=== PATIENT | male | born 1965 | race Caucasian/White ===

== ENCOUNTER 2016-12-03 16:52 | Inpatient (IN) | payer OTHER ==
[~2016-12-03] VITALS: Ht 167.6 cm; Wt 67.0 kg
[~2016-12-03 16:52] MED LIST: PREDNISONE20 MG PO; VENTOLIN HFA18 GM IH
[2016-12-03 17:38] LABS: HEMATOCRIT 43.8 % (38.0-50.0); MCH 32.1 PG (29.0-34.0); MCHC 34.2 G/DL (30.0-36.0); MCV 93.8 FL (86-99); MEAN PLAT.VOLUME 8.5 uM^3 (9.0-12.4); PLATELET COUNT 474 K/uL (156-360); RBC DIS.WIDTH-CV 12.6 % (11.8-14.6); RBC DIS.WIDTH-SD 43.8 % (39-53); RED BLOOD COUNT 4.67 M/uL (4.00-5.50); WHITE BLOOD COUNT 17.7 K/uL (4.1-10.2)
[2016-12-03 17:48] LABS: CHLORIDE 102 mEq/L (99-109); POTASSIUM 3.4 mEq/L (3.7-5.4); SODIUM 137 mEq/L (136-147)
[2016-12-03 17:50] LABS: GLUCOSE 88 mg/dL (70-99)
[2016-12-03 17:51] LABS: ANION GAP 13 MEQ/L (2-14)
[2016-12-03 17:54] LABS: GFR ESTIMATE (CALCULATED) > 59 mL/min/
[2016-12-03 17:55] LABS: UREA NITROGEN (BUN) 8 mg/dL (9-23)
[2016-12-03 18:18] LABS: D-DIMER ELISA < 150.00 ng/mLDDU (<230)
[2016-12-03 19:22] LABS: TROP-I INTERPRETATION NEGATIVE; TROPONIN-I < 0.01 ng/mL (0.0-0.30)
[2016-12-03] MEDS ORDERED: PROAIR HFA8.5 GM IH (23:52)
[2016-12-03] MEDS ORDERED: ADVAIR 250/501 DISK IH (23:53)
[2016-12-03] MEDS ORDERED: MUCINEX1200 MG PO (23:53)
[2016-12-04 00:59] VITALS: BP 139/87
[2016-12-04 08:25] VITALS: BP 137/86
[2016-12-04 10:35] LABS: DIRECT BILIRUBIN 0.1 mg/dL (0.0-0.3); TOTAL BILIRUBIN 0.3 MG/DL (0.0-1.0)
[2016-12-04 10:40] LABS: ALKALINE PHOSPHATASE 63 IU/L (3-129)
[2016-12-04 11:35] VITALS: BP 144/93
[2016-12-04 11:36] LABS: INFLUENZA A VIRAL ANTIGEN NEGATIVE; INFLUENZA B VIRAL ANTIGEN NEGATIVE
[2016-12-04 16:10] VITALS: BP 111/66
[2016-12-04 19:43] VITALS: BP 132/88
[2016-12-04 23:34] VITALS: BP 132/85
[2016-12-05 06:11] LABS: HEMATOCRIT 39.3 % (38.0-50.0); MCH 32.4 PG (29.0-34.0); MCHC 33.8 G/DL (30.0-36.0); MCV 95.6 FL (86-99); MEAN PLAT.VOLUME 9.2 uM^3 (9.0-12.4); PLATELET COUNT 450 K/uL (156-360); RBC DIS.WIDTH-CV 13.2 % (11.8-14.6); RED BLOOD COUNT 4.11 M/uL (4.00-5.50); WHITE BLOOD COUNT 19.9 K/uL (4.1-10.2)
[2016-12-05 06:31] LABS: ANION GAP 9 MEQ/L (2-14); CHLORIDE 105 MEQ/L (99-109); GFR ESTIMATE (CALCULATED) > 59 mL/min/; POTASSIUM 3.9 MEQ/L (3.7-5.4); SAMPLE HEMOLYSIS CHECK 0; SAMPLE ICTERIC CHECK 0; SAMPLE LIPEMIA CHECK 0; SODIUM 142 MEQ/L (136-147); UREA NITROGEN (BUN) 8 mg/dL (9-23)
[2016-12-05 06:32] LABS: GLUCOSE 119 mg/dL (70-99)
[2016-12-05 07:38] VITALS: BP 120/86
[2016-12-05] MEDS ORDERED: CEFDINIR300 MG PO (12:28)
[2016-12-05] MEDS ORDERED: PREDNISONE5 MG PO (12:28)
[2016-12-05] MEDS ORDERED: DUONEB 2.5-0.5 M3 ML AEROSOL (12:28)
== END 2016-12-05 14:33 | disposition home or self-care (01) | DRG 871 ==
LOC: EME 16:52 → EDOF 23:09 → 5SOUTH 23:09 → ENRESERV 23:12 → 5SOUTH 12-04 00:40
PROVIDERS: Hospitalist; Physician Assistant
DX: A41.9 Sepsis, unspecified organism (principal); J44.0 Chronic obstructive pulmonary disease with (acute) lower respiratory infection; J18.0 Bronchopneumonia, unspecified organism; J20.9 Acute bronchitis, unspecified; J44.1 Chronic obstructive pulmonary disease with (acute) exacerbation; F17.210 Nicotine dependence, cigarettes, uncomplicated; Z87.441 Personal history of nephrotic syndrome; Z82.5 Family history of asthma and other chronic lower respiratory diseases; Z83.3 Family history of diabetes mellitus
CPT/HCPCS: 71020; 71275; 80048; 80076; 81003; 83605; 84484; 85027; 85379; 87040; 87070; 87205; 87502; 93005; 94640; 94640 76; 94644; 94760; 94799; 99202; 99281; 99285; J0696; J1650; J2930; J7030; J7050; J7512